=== PATIENT | female | born 1995 | race African-American/Black ===

== ENCOUNTER 2019-08-11 20:46 | Emergency (ER) | payer OTHER, SELFPAY ==
[2019-08-11] MEDS ORDERED: diphenhydrAMINE 50 MG/ML VIAL ONE (21:27)
[2019-08-11] MEDS ORDERED: Metoclopramide HCl 10 MG/2 ML VIAL ONE (21:27)
[2019-08-11] MEDS ORDERED: Ketorolac Tromethamine 30 MG/ML VIAL ONE (21:27)
[2019-08-11] MEDS ORDERED: Acetaminophen 500 MG TAB ONE (21:28)
== END 2019-08-11 23:12 | disposition home or self-care (01) ==
LOC: ERS 20:46
DX: G43.909 Migraine, unspecified, not intractable, without status migrainosus (principal); D50.9 Iron deficiency anemia, unspecified
CPT/HCPCS: 96365; 96366; 96375; J1200; J1885; J2765